=== PATIENT | female | born 1980 | race Caucasian/White ===

== ENCOUNTER 2021-10-25 03:33 | Emergency (ER) | payer OTHER, SELFPAY ==
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
[2021-10-25 03:39] VITALS: BP 146/90; PULSE 115; RESP 16; TEMP 36.7; O2SAT 98; BMI 64.5
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
[2021-10-25 04:49] VITALS: BP 124/66; PULSE 100; RESP 16; TEMP 36.5; O2SAT 98
== END 2021-10-25 05:20 | disposition home or self-care (01) ==
LOC: HO.ED 05:19
PROVIDERS: Emergency Provider Emergency Medicine
DX: S00.219A Abrasion of unspecified eyelid and periocular area, initial encounter (principal); S40.212A Abrasion of left shoulder, initial encounter; S40.012A Contusion of left shoulder, initial encounter; V43.52XA Car driver injured in collision with other type car in traffic accident, initial encounter; Y93.89 Activity, other specified; Y92.410 Unspecified street and highway as the place of occurrence of the external cause; Y99.9 Unspecified external cause status
CPT/HCPCS: 73030; 73060; 99283; 99284